=== PATIENT | female | born 1940 | race Caucasian/White ===

== ENCOUNTER 2019-02-10 00:04 | Observation (INO) ==
--- NOTE | 2019-02-10 00:24 | PROVIDER DOCUMENTATION ---
HPI-Chest Pain - General Chief Complaint: Chest Pain Stated Complaint: Chest Pain Time Seen by Provider: 02/10/19 00:11 Source: patient Allergies/Adverse Reactions: Patient Allergies Allergy/AdvReac Type Severity Reaction Status Date / Time ibuprofen [From Motrin] Allergy RASH Verified 02/06/19 11:40 morphine Allergy Unknown Verified 02/06/19 11:40 Home Medications: Home Medication List Medication Instructions Recorded Confirmed Last Taken Type PRAVAstatin [Pravachol] 10 mg PO QHS 07/07/13 02/06/19 1 Day Ago History ~02/05/19 Warfarin [Coumadin] 5 mg PO QHS #30 tab 03/13/17 02/06/19 1 Day Ago Rx ~02/05/19 Carisoprodol [Soma] 350 mg PO QHS 04/19/17 02/06/19 1 Day Ago History ~02/05/19 Multivitamin with Minerals 1 each PO DAILY 11/17/17 02/06/19 02/06/19 History [Multiple Vitamin] [place]-3 Fatty Acids/Fish Oil [Fish 1 each PO DAILY 11/17/17 02/06/19 02/06/19 History Oil 1,000 mg Capsule] Acetaminophen [Tylenol] 650 mg PO Q6H PRN PRN tablet 12/01/17 02/06/19 1 Day Ago Rx ~02/05/19 Diltiazem C.d. [Cardizem Cd] 360 mg PO DAILY #30 cap 12/01/17 02/06/19 02/06/19 Rx Potassium Chloride E.r. [Klor-Con] 10 meq PO DAILY 02/03/18 02/06/19 02/06/19 History Tramadol [Ultram] 1 tab PO TID PRN PRN 02/03/18 02/06/19 02/06/19 History Cephalexin 500 mg PO QAM 02/06/19 02/06/19 02/06/19 History Methimazole [Tapazole] 5 mg PO BID 02/06/19 02/06/19 02/06/19 History Methyldopa 250 mg PO QAM 02/06/19 02/06/19 02/06/19 History - History of Present Illness-CP Nature of Presenting Problem: 78 yr old F, hx of heart disease with pacemaker - presents with several day hx of persistent HTN in spite of two medication changes, as well as new onset chest pressure with right arm numbness this evening. The pt has had issues getting her BP under control despite two med changes by her PCP. She reports taking her medicine earlier this evening, and went to bed, but at some point began feeling poorly, so she retook her BP, and noted it to be elevated; at the same time, she began to have chest pressure, SOB, and right arm numbness. She also notes that she has actually been feeling SOB with exertion over the past few days. Location: reports: central Severity in ED: moderate Onset/Duration: 1 hour ago Timing: still present Associated Symptoms: reports: nausea Nitro Today/Relief: provided by ED Aspirin Treatment Today: 325 mg x 1, provided by EMS Prior Chest Pain/Cardiac Workup: reports: heart attack Similar Symptoms Previously?: Yes Recently Seen Here or By Another Healthcare Provider: Yes Review of Systems - Adult - REVIEW OF SYSTEMS - ADULT Constitutional: reports: no symptoms reported Eyes: reports: no symptoms reported Ears, Nose, Mouth & Throat: reports: no symptoms reported Cardiovascular: reports: chest pain Respiratory: reports: cough, shortness of breath Gastrointestinal: reports: nausea Genitourinary: reports: no symptoms reported Musculoskeletal: reports: no symptoms reported Integumentary: reports: no symptoms reported Neurological: reports: no symptoms reported Endocrine: reports: no symptoms reported Past History - Adult - PAST MEDICAL HISTORY-ADULT Review of Records: reports: Old Records Reviewed, Nursing Assessment Review, Medications Reviewed Major Childhood Illnesses: reports: denies history Cardiovascular: reports: cardiac disease, A-Fib, arrhythmia, CAD, HTN, hyperlipidemia, [place] Respiratory: reports: denies history Gastrointestinal: reports: GERD, IBS Obstetrical/Gynecological: reports: denies history Genitourinary: reports: chronic UTI's Musculoskeletal: reports: denies history Neurological: reports: denies history Psychiatric: reports: denies history Endocrine/Immune: reports: denies history Other Conditions: reports: denies history - PRIOR SURGERIES/PROCEDURES Surgical/Procedure History: reports: appendectomy, cardiac stent (2007), hysterectomy, hernia repair - PRIOR HOSPITALIZATIONS Prior Hospitalizations: reports: none - IMMUNIZATION STATUS Childhood Immunizations: See Nurse Assessment Flu Vaccine: See Nurse Assessment - FAMILY HISTORY Family History: reviewed, not pertinent Physical Exam-General - PHYSICAL EXAM-ADULT Initial Vital Signs Reviewed: Yes - CONSTITUTIONAL General Appearance: alert, mild distress - EYES Eyes: PERRL/EOMI - HEAD, EARS, NOSE, MOUTH & THROAT HENMT: normocephalic/atraumatic, moist mucous membranes - RESPIRATORY Respiratory: lungs clear, normal breath sounds - CARDIOVASCULAR Cardiovascular: tachycardia - NEUROLOGIC Neurologic: grossly normal - PSYCHIATRIC Psych/Mental Status: normal mood/affect, oriented x 3 - HEART Score HEART Score: History: Moderately Suspicious HEART Score: ECG: Normal HEART Score: Age: > or = 65 Years HEART Score: Risk Factors for Atherosclerotic Disease: > or = 3 Risk Factors or History of Atherosclerotic Disease HEART Score: Troponin: < or = Normal Limit Total HEART Score:: 5 Progress - PLAN OF CARE/RESULTS Progress/Plan/Lab Results: Vital Signs - 8 hr 02/10/19 00:57 Temperature 98.0 F Pulse Rate 105 H Respiratory Rate 20 Blood Pressure 174/87 O2 Sat by Pulse Oximetry 98 Laboratory Results - last 24 hr 02/10/19 02/10/19 02/10/19 00:44 00:44 00:44 WBC 8.14 RBC 4.52 Hgb 13.6 Hct 42.7 MCV 94.5 MCH 30.1 MCHC 31.9 L RDW Std Deviation 14.5 Plt Count 203 MPV 9.8 Immature Gran % (Auto) 0.5 Neut % (Auto) 59.4 Lymph % (Auto) 28.1 Ramsey % (Auto) 9.1 Eos % (Auto) 2.7 Baso % (Auto) 0.2 Immature Gran # (Auto) 0.04 Neut # (Auto) 4.83 Lymph # (Auto) 2.29 Ramsey # (Auto) 0.74 H Eos # (Auto) 0.22 Baso # (Auto) 0.02 PT INR PTT (Actin FS) Sodium 144 Potassium 3.6 Chloride 101 Carbon Dioxide 23 L Anion Gap 20 BUN 18 Creatinine 0.8 Estimated GFR/1.73 m2 > 60 BUN/Creatinine Ratio 23 Glucose 159 H Calculated Osmolality 292 Calcium 10.3 H Total Bilirubin < 0.15 L AST 19 ALT 26 Alkaline Phosphatase 101 Troponin T < 0.010 Total Protein 6.7 Albumin 4.0 Globulin 2.7 Albumin/Globulin Ratio 1.5 02/10/19 00:44 WBC RBC Hgb Hct MCV MCH MCHC RDW Std Deviation Plt Count MPV Immature Gran % (Auto) Neut % (Auto) Lymph % (Auto) Ramsey % (Auto) Eos % (Auto) Baso % (Auto) Immature Gran # (Auto) Neut # (Auto) Lymph # (Auto) Ramsey # (Auto) Eos # (Auto) Baso # (Auto) PT 23.6 H INR 2.04 PTT (Actin FS) 33.4 Sodium Potassium Chloride Carbon Dioxide Anion Gap BUN Creatinine Estimated GFR/1.73 m2 BUN/Creatinine Ratio Glucose Calculated Osmolality Calcium Total Bilirubin AST ALT Alkaline Phosphatase Troponin T Total Protein Albumin Globulin Albumin/Globulin Ratio Orders Category Date Time Status CHEST-2 VIEWS [RAD] Stat Exams 02/10/19 00:57 Taken CBC WITH ELECTRONIC DIFF [HEME] Stat Lab 02/10/19 00:44 Completed COMPREHENSIVE METABOLIC PANEL [CHEM] Stat Lab 02/10/19 00:44 Completed PROTIME WITH INR [COAG] Stat Lab 02/10/19 00:44 Completed PTT [COAG] Stat Lab 02/10/19 00:44 Completed TROPONIN T Stat Lab 02/10/19 00:44 Completed Nitroglycerin Med 02/10/19 00:57 Discontinued 1 inch TOP NOW ONE EKG [EKG] Stat Ther 02/10/19 00:56 Draft Labs and EKG are stable from her previous ED visit 72 hrs ago; however, given her HEART score, PMHx, and repeat visit for similar complaints, I spoke with Dr. Robertson, who agrees to accept her for observation. Result Diagrams: 02/10/19 00:44 02/10/19 00:44 - EKG 1 Time of EKG reading by physician:: 12:33 EKG Read and Signed by:: Trey Benítez EKG Interpretation (*Must complete 3 of following elements*): Abnormal Rate: 102 Rhythm: sinus tach QRS: normal AL Interval: normal ST Wave: normal Prior EKG Comparison: changes noted (sinus tach) - CONSULTS/PCP/HOSPITALIST Notification #1 *Consult/PCP/Hospitalist*: Dr. Robertson Time Discussed: 02:10 (will admit for obsv) Consult Disposition: Admit Departure - Departure Date of Disposition Decision: 02/10/19 Time of Disposition Decision: 02:10 DIAGNOSIS: Tachycardia, Hypertension Disposition: ADMITTED INPATIENT 09 Certified Medical Emergency: Emergent Condition: Fair Referrals and Follow-Ups: Jonas Arevalo MD [Primary Care Provider] - - Critical Care Note This patient required my direct & personal management of CC.: No Attestation - Physician/ NIRMALA Attestation Patient care was provided by Advanced Practice Provider:: No The physician spent face to face time with patient:: Yes Advanced Practice Provider documentation review:: Supervising physician onsite and consulted in the evaluation and care of this patient. The physician did have a face to face encounter with the patient.
[2019-02-10] MEDS ORDERED: NITROGLYCERIN TOP ONE (00:57)
[2019-02-10 01:12] LABS: BASO# 0.02 X1000 (0.0-0.2); BASO% 0.2 % (0.0-0.8); EOS# 0.22 X1000 (0.0-0.7); EOS% 2.7 % (0.0-10.0); HEMATOCRIT 42.7 % (37.0-47.0); HEMOGLOBIN 13.6 g/dL (12.0-16.0); IMM GRAN# 0.04 X1000 (0.0-0.04); IMM GRAN% 0.5 % (0.0-0.5); LYMPH# 2.29 X1000 (1.2-3.4); LYMPH% 28.1 % (20.5-51.1); MCH 30.1 PG (27-31); MCHC 31.9 g/dL (33-37); MCV 94.5 FL (81-99); MONO# 0.74 X1000 (0.11-0.59); MONO% 9.1 % (1.7-9.3); MPV 9.8 FL (7.4-10.4); NEUT# 4.83 X1000 (1.4-6.5); NEUT% 59.4 % (42.2-75.2); PLT 203 X1000 (130-400); RBC 4.52 XMIL (4.2-5.4); RDW 14.5 % (11.5-14.5); WBC 8.14 X1000 (4.8-10.8)
[2019-02-10 01:19] LABS: INR 2.04; PROTIME 23.6 Seconds (11.0-16.0)
[2019-02-10 01:20] LABS: PTT 33.4 Seconds (22.3-41.8)
--- NOTE | 2019-02-10 01:40 | EKG Report ---
Test Performed on : 02/10/2019 00:33:41 AM Test Reason : CP Blood Pressure : / mmHG Vent. Rate : 102 BPM Atrial Rate : 102 BPM P-R Int : 172 ms QRS Dur : 082 ms QT Int : 354 ms P-R-T Axes : 043 -09 014 degrees QTc Int : 461 ms Sinus tachycardia. Possible Anterior infarct (cited on or before 06-FEB-2019) Abnormal ECG When compared with ECG of 06-FEB-2019 10:16, (Unconfirmed) No significant change was found Unconfirmed Result
[2019-02-10 01:56] LABS: AGAP 20; ALB/GLOB RATIO 1.5; ALKALINE PHOSPHATASE 101 U/L (32-104); BUN 18 mg/dL (8-22); CALCIUM 10.3 mg/dL (8.8-10.2); CHLORIDE 101 mmol/L (98-107); COSMO 292; CREATININE 0.8 mg/dL (0.5-0.9); ESTIMATED GFR > 60; GLUCOSE 159 mg/dL (70-104); GOT 19 U/L (10-30); GPT 26 U/L (10-36); POTASSIUM 3.6 mmol/L (3.5-5.1); SODIUM 144 mmol/L (136-145); TCO2 23 mmol/L (25-35); TOTAL BILIRUBIN < 0.15 mg/dL (0.20-1.00); TOTAL PROTEIN 6.7 g/dL (6.3-8.3)
[2019-02-10] MEDS ORDERED: APRESOLINE IV PRN ×2 (02:42→03:02)
[2019-02-10] MEDS ORDERED: KLOR-CON PO ONE (02:42)
[2019-02-10] MEDS ORDERED: NITROGLYCERIN TOP SCH (05:05)
[2019-02-10] MEDS ORDERED: ULTRAM PO PRN (05:05)
[2019-02-10] MEDS ORDERED: ZOFRAN IV PRN (05:05)
[2019-02-10] MEDS ORDERED: TYLENOL PO PRN (05:05)
--- NOTE | 2019-02-10 06:20 | Diag Imaging Result Doc PS360 ---
CHEST-2 VIEWS - 02/10/2019 INDICATION: Chest Pain COMPARISON: 02/06/2019 FINDINGS: Stable pacemaker. Heart size and pulmonary vascularity remain normal. Stable multifocal linear scarring in the peripheral lung bases left greater than right. No new or focal infiltrates. No pneumothorax or pleural effusion. IMPRESSION: No acute process. Electronically signed by Alessandro Enriquez 02/10/2019 6:18 AM
[2019-02-10] MEDS ORDERED: PRILOSEC PO SCH (07:00)
--- NOTE | 2019-02-10 07:34 | HISTORY AND PHYSICAL ---
CHIEF COMPLAINT: Chest pain. HISTORY OF PRESENT ILLNESS: This is a very pleasant 78-year-old female who came to the emergency room with chest pain. She was seen 3 days ago, I believe in the emergency room with similar symptoms. She does have a history of coronary artery disease status post myocardial infarction and stenting x3. She also has chronic atrial fibrillation with a pacemaker and Coumadin anticoagulation. She states that her blood pressure has been persistently high the past several days. She has seen her primary care provider, Dr. Jonas Arevalo who has made medication changes each time. She reports taking her medication earlier this evening and went to bed but at some point began feeling poorly so she retook her blood pressure and noted it was very elevated. At the same time, she began having chest pain, shortness of breath and right arm numbness. She denied any nausea or vomiting or diaphoresis. She also has been feeling short of breath with exertion for the last couple of days as well. All laboratory data in the emergency room was grossly normal. The patient was having frequent PVCs on the monitor. Her EKG showed sinus tachycardia with a rate of 102. She will be admitted in observation status for further evaluation and treatment. PAST MEDICAL HISTORY: See HPI. Also IBS, chronic diarrhea, chronic UTI and GERD. PREVIOUS SURGICAL HISTORY: 1. Cholecystectomy. 2. Pacemaker implantation. 3. Appendectomy. 4. Hysterectomy. 5. Hernia repair. 6. Cardiac stenting in 2007. SOCIAL HISTORY: Lives alone. No tobacco, alcohol or illicit drugs. FAMILY HISTORY: Positive for hypertension. ALLERGIES: Ibuprofen and morphine. HOME MEDICATIONS: The patient takes Coumadin and minoxidil. I am unsure of the doses as well as I do not have the rest of the medication list. Nursing is working on trying to reconcile the list of medications to place in the computer. REVIEW OF SYSTEMS: Fourteen point review of systems conducted with the patient. Pertinent positives listed above in the HPI. All other systems reviewed and found to be negative. PHYSICAL EXAMINATION: VITAL SIGNS: Temp 98 degrees, pulse 105, respirations 20, blood pressure 154/90, oxygen saturation 98% on room air. GENERAL: Pleasant 78-year-old female lying in the ER stretcher. Alert and oriented x3. Answers all questions appropriately. HEENT: Head is atraumatic, normocephalic. Pupils equal, round and reactive to light. Extraocular eye movements intact. Sclerae anicteric. Conjunctivae pale. Oral mucosa is moist. NECK: Supple. No JVD. No thyromegaly. Trachea is midline. No cervical lymphadenopathy. CARDIAC: S1, S2 appreciated. Patient is having some arrhythmia, frequent PVCs on the monitor. She is tachycardic. She is in sinus rhythm at this time. No murmurs, gallops, rubs. LUNGS: Clear to auscultation bilaterally. No rhonchi, wheezes, rales. Symmetric rise and fall of respirations. ABDOMEN: Soft, nondistended, nontender. Bowel sounds present in all 4 quadrants. Normoactive. No pulsatile masses. No organomegaly. EXTREMITIES: No cyanosis, clubbing. Mild 1+ pitting edema around the ankles. 2+ pedal pulses bilaterally. GENITOURINARY: No bladder distention. Patient voids. Otherwise deferred. NEUROLOGICAL: Alert and oriented x3. No focal motor deficits. Otherwise nonfocal examination. DIAGNOSTIC DATA: Chest x-ray: No edema. No infiltrates. Otherwise unremarkable. EKG: Sinus tachycardia, rate 108. LABORATORY DATA: CBC within normal limits. INR 2.04. Sodium 144, potassium 3.6, chloride 101, carbon dioxide 23, BUN 18, creatinine 0.8, glucose 159. Troponin less than 0.010. ASSESSMENT AND PLAN: 1. Chest pain, rule out acute myocardial infarction. We will order a stress test tomorrow morning. Trend cardiac enzymes. Nitroglycerin 1 inch topically q.6 hours. Defer further treatment or possible cardiac consultation to her primary care provider, Dr. Jonas Arevalo. 2. Hypertension. Nursing to reconcile home medications. These will be started when appropriate. At this time, we will give hydralazine 10 mg IV q.6 hours for a systolic blood pressure greater than 180 as well as the nitroglycerin. 3. Hyperlipidemia. We will continue statin. Check a direct lipid profile. 4. Atrial fibrillation with chronic Coumadin anticoagulation. INR daily. We will restart Coumadin when dosage is placed in the computer. Further recommendations per patient's clinical course. Dictated by DELBERT Howell for Yunier Shane MD Addendum: Patient seen and examined by myself. Agree with DELBERT note. It reflects my assessment and plan. Patient is being admitted to hospital for chest pain that happened since last 4 days. Will check troponins and echo and will go from there. cc: DELBERT Howell MD Robert Allen, MD MTDD
--- NOTE | 2019-02-10 07:40 | EKG Report ---
Test Performed on : 02/10/2019 06:59:54 AM Test Reason : cp Blood Pressure : / mmHG Vent. Rate : 106 BPM Atrial Rate : 106 BPM P-R Int : 184 ms QRS Dur : 082 ms QT Int : 340 ms P-R-T Axes : 041 -17 041 degrees QTc Int : 451 ms Sinus tachycardia. with occasional premature ventricular complexes. Left ventricular hypertrophy with repolarization abnormality Abnormal ECG When compared with ECG of 10-FEB-2019 00:33, (Unconfirmed) premature ventricular complexes. are now present Confirmed by Sarina SHAH, [place] ([id number]) on 02/12/2019 6:55:34 AM
--- NOTE | 2019-02-10 08:57 | PROGRESS NOTE ---
DATE: 02/10/2019 SUBJECTIVE: The patient is a 78-year-old white female, who came into the emergency room with chest pain early this morning. Troponins and EKG are unremarkable. Her chest pain has resolved by this morning. She was unable to sleep last night. VITAL SIGNS: Temperature 97.9 degrees, heart rate 118 and irregular, atrial fibrillation, respirations 20, blood pressure 159/89, O2 saturation on room air 94%. OBJECTIVE: Heart: Heart is irregular in rate and rhythm with no murmur. Lungs: Lungs are clear. Abdomen: Soft. X-RAY: Chest x-ray revealed no acute process. PLAN: Cardiology consult with Dr. Markham, her usual malt specifications control assistant. If she continues to be without pain and Cardiology evaluation does not recommend additional testing, she may be discharged home this afternoon. cc: Jonas Arevalo MD
[2019-02-10] MEDS ORDERED: THERA M PLUS PO SCH (09:00)
[2019-02-10] MEDS: KLOR-CON PO SCH ×2 (11:35→15:19)
[2019-02-10] MEDS ORDERED: LANOXIN PO SCH (12:45)
[2019-02-10] MEDS ORDERED: CARDIZEM CD PO SCH (12:45)
[2019-02-10] MEDS ORDERED: LEXISCAN ONE (12:51)
--- NOTE | 2019-02-10 15:29 | Diag Imaging Result Document ---
PROCEDURE NAME: MYOCARDIAL PERF SCAN, STR/REST - 02/10/2019 PROCEDURE: Lexiscan Cardiolite stress test. DESCRIPTION OF PROCEDURE: Patient had Lexiscan infusion per standard protocol. He had chest discomfort with Lexiscan infusion. Was given 125 mg of aminophylline intravenously which helped with her symptoms. Stress electrocardiogram was negative for ischemia. Baseline electrocardiogram revealed normal sinus rhythm. Poor R-wave progression with nonspecific ST-T changes in the inferolateral leads. Following Lexiscan infusion, Cardiolite was injected. Gated SPECT images were obtained in standard views. Cardiolite 11.7 mCi was injected for the rest phase. Cardiolite 34.1 mCi was injected for the stress phase. Images revealed significant chest wall attenuation. There is normal left ventricular cavity size. Normal myocardial perfusion. Left ventricular ejection fraction by gated SPECT was 84%. CONCLUSIONS: 1. Nondiagnostic Lexiscan stress electrocardiogram. There were baseline ST-T changes. 2. Normal myocardial perfusion. 3. Left ventricular ejection fraction by gated SPECT was 84%. cc: MD Sohan Austin CRNP
[2019-02-10 17:27] LABS: URINE SOURCE CLEAN CATCH
[2019-02-10 17:41] VITALS: BP 167/90
[2019-02-10 17:42] LABS: BILIRUBIN URINE NEGATIVE (NEGATIVE); BLOOD URINE SMALL (NEGATIVE); COLOR YELLOW; GLUCOSE URINE 150 mg/dL (NEGATIVE); KETONE URINE NEGATIVE (NEGATIVE); LEUKOCYTES URINE NEGATIVE (NEGATIVE); NITRITE URINE NEGATIVE (NEGATIVE); PROTEIN URINE 100 mg/dL (NEGATIVE); SP GRAVITY URINE 1.019; TURBIDITY URINE CLEAR (CLEAR); UROBILINOGEN URINE NORMAL (NORMAL)
[2019-02-10 17:43] LABS: UR EPITHELIAL CELLS <10 /HPF (<10); URINE BACTERIA NEGATIVE /HPF; URINE RBC <10 /HPF (<10); URINE WBC <10 /HPF (<10)
--- NOTE | 2019-02-10 20:53 | CONSULTATION ---
DATE OF CONSULTATION: 02/10/2019 IMPRESSION: 1. Episode of chest discomfort lasting approximately 90 minutes last night with some features suggesting angina. However, serial troponins have been normal. 2. Atherosclerotic coronary disease with previous coronary angioplasty/stenting of right coronary artery more than 10 years ago. Last coronary angiogram in 2008 demonstrated stent to be patent. 3. Paroxysmal atrial fibrillation. 4. Sinus node dysfunction. The patient is status post permanent dual-chamber pacemaker. 5. Hypertension, long standing for more than 30 years. RECOMMENDATIONS: 1. Agree with plan for evaluation with Lexiscan sestamibi study. 2. Followup echocardiography. 3. Resume beta-alexis with metoprolol. HISTORY: This 78-year-old white female with past history of atherosclerotic coronary disease, paroxysmal atrial fibrillation, previous permanent pacemaker for sinus node dysfunction, longstanding hypertension, and irritable bowel syndrome was admitted for further evaluation of chest discomfort. She relates that yesterday evening while seated, she started experiencing chest pressure. There was some discomfort in her left arm with this. Symptoms persisted for about an hour and a half and faded out as she was being loaded in the ambulance to be brought to the emergency room. She was pain free by the time she arrived to the emergency room. She has had some occasional dull upper substernal discomfort sporadically. She has had [id number] hypertension. About 2 weeks ago, her atenolol was stopped and she was started on Aldomet as well as minoxidil because of difficult to control high blood pressure. PAST MEDICAL HISTORY: 1. Atherosclerotic coronary disease. 2. Hypertension. 3. Paroxysmal atrial fibrillation. 4. Sinus node dysfunction. Patient is status post permanent pacemaker. 5. Irritable bowel syndrome. 6. Chronic recurrent urinary tract infections. 7. Gastroesophageal reflux disease. PAST SURGICAL HISTORY: Cholecystectomy, permanent pacemaker, appendectomy, hysterectomy, hernia repair and coronary stent to the right coronary artery. ALLERGIES: She is allergic or intolerant to ibuprofen and morphine. MEDICATIONS PRIOR TO ADMISSION: As listed. SOCIAL HISTORY: She is . She is retired and lives independently. She does not smoke. Drinks alcohol. FAMILY HISTORY: Negative for premature coronary disease. REVIEW OF SYSTEMS: Pulmonary: Negative. Gastrointestinal: Negative. Constitutional: Negative. The remainder of the review of systems is negative/noncontributory with 14 total systems reviewed. PHYSICAL EXAMINATION: General: This is a pleasant older white female in no distress. Vital signs: Blood pressure 159/89, heart rate 112. HEENT: Extraocular movements intact. Mucous membranes moist. Neck: Supple. No jugular venous distention. There are no carotid bruits. Chest: Clear to auscultation. Cardiac Exam: Reveals a regular tachycardia without appreciable murmur or gallop. Abdomen: Soft. Bowel sounds are normal. Extremities: Without edema. Neurologic: Reveals her to be alert and fully oriented. Speech is fluent. Moves all 4 extremities equally well. Skin: Warm dry. Psychiatric: Reveals mood to be appropriate. EKG: A 12-lead EKG demonstrates sinus tachycardia with occasional premature ventricular complex. LABORATORY DATA: Includes a sodium 144, potassium 3.6, chloride 101, carbon dioxide 23, BUN 18, creatinine 0.8, glucose 159. White blood cell count 8.14, hematocrit 42.7, hemoglobin 13.6, platelet count 203,000. Troponin T less than 0.01. Followup troponin T less than 0.01, and less than 0.01. cc: MD Jonas Monson MD
[2019-02-10] MEDS ORDERED: SOMA PO SCH (21:00)
[2019-02-10] MEDS ORDERED: COUMADIN PO SCH (21:00)
[2019-02-10] MEDS ORDERED: PRAVACHOL PO SCH (21:00)
[2019-02-10] MEDS ORDERED: COREG PO SCH ×2 (21:00)
[2019-02-11] MEDS ORDERED: NORVASC PO SCH (09:00)
--- NOTE | 2019-02-11 17:14 | DISCHARGE SUMMARY ---
ADMISSION DATE: 02/10/2019 DISCHARGE DATE: 02/10/2019 FINAL DIAGNOSES: 1. Chest pain, substernal, atypical. 2. Atrial fibrillation with rapid ventricular response. 3. Hypertension. 4. 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 DISCHARGE MEDICATIONS: Usual home medications. FOLLOWUP: Follow up with Dr. Markham in 3 weeks in his office. HISTORY OF PRESENT ILLNESS: This is the first recent [facility] admission for this 78-year- old, white female, who presented to the emergency room in early a.m. with substernal chest pain. Initial EKG and enzymes were unremarkable. LABORATORY: Hemoglobin 13.6, hematocrit 42.7, white blood count 8100, with normal differential. Basic metabolic profile normal, except for elevated blood sugar of 159. Troponin T was less than 0.01. Lipids revealed cholesterol 158, triglycerides 221, LDL 100, HDL 44. HOSPITAL COURSE: Her chest pain resolved by the time I saw her at 8 a.m. Consultation was obtained with Dr. Markham. Nuclear medicine GXT was done. This was nondiagnostic. There were baseline ST-T changes. There was normal myocardial perfusion. There was left ventricular ejection fraction of 84%. There was delay in her receiving usual medicines today and heart rate continues to be elevated at over 120. She is feeling well and desires to go home. She is discharged home on her usual medicines, to be seen back in the office in one week for followup and by Dr. Markham in three weeks. cc: Jonas Arevalo MD
== END 2019-02-10 18:19 | disposition home or self-care (01) ==
LOC: SUPCPDRO → 4N 00:04 → ED 00:04 → SUATTDRO 04:47
PROVIDERS: ADMIT Family Medicine; ATTEND Family Medicine